=== PATIENT | male | born 1935 | race Caucasian/White ===

== ENCOUNTER 2019-09-08 04:41 | Inpatient (IN) | payer MEDICARE, BC ==
[2019-09-08] MEDS ORDERED: NALOXONE 0.4 MG/ML 1 ML VIAL IV PRN (04:56)
[2019-09-08] MEDS ORDERED: ACETAMINOPHEN TAB 325 MG TAB PO PRN (04:56)
[2019-09-08] MEDS ORDERED: MORPHINE SULFATE 4 MG/ML SYRINGE IV PRN (04:56)
--- NOTE | 2019-09-08 04:56 | ED ---
General Adult HPI - General Stated complaint: GI Bleed Time Seen by Provider: 09/08/19 04:42 Source: patient, family, EMS Mode of arrival: EMS Limitations: no limitations - History of Present Illness Initial comments: Dictation was produced using [employer] dictation software. please excuse any grammatical, word or spelling errors. Chief Complaint: 84-year-old male past medical history of coronary artery disease, dyslipidemia hypertension presents via transfer from [facility] for colitis. History of Present Illness: 84-year-old female he initially presented to [facility]. One hour prior to arriving at [facility] he had 1 hours symptoms of lower abdominal pain. Patient states he had severe abdominal pain and became diaphoretic. He was initially evaluated there where he Extensive workup. His CT was positive for colitis. His x-ray was suggestive of ileus. Patient was given antibiotics for concern of infectious colitis. Patient was also having been found to have elevated white blood cell count. He is given antibiotics and transferred to our facility for escalation of care. Patient is also found have mild hypokalemia is given parenteral potassium. CT was less likely to represent ischemic bowel. Patient was seen and evaluated by Dr. loya at [facility]. Dr. loya felt patient needed to be tra nsferred to our facility for need of surgery versus GI. He states he feels much better since being transferred. States that he wants to use the restroom. The ROS documented in this emergency department record has been reviewed and confirmed by me. Those systems with pertinent positive or negative responses have been documented in the HPI. All other systems are other negative and/or noncontributory. PHYSICAL EXAM: General Impression: Alert and oriented x3, not in acute distress HEENT: Normocephalic atraumatic, extra-ocular movements intact, pupils equal and reactive to light bilaterally, mucous membranes moist. Cardiovascular: Heart regular rate and rhythm, S1&S2 audible, no murmurs, rubs or gallops Chest: Lungs clear to auscultation bilaterally, no rhonchi, no wheeze, no rales Abdomen: Bowel sounds present, abdomen soft, mild diffuse abdominal tenderness Musculoskeletal: Pulses present and equal in all extremities, no peripheral edema Motor: no focal deficits noted Neurological: CN II-XII grossly intact, no focal motor or sensory deficits noted Skin: Intact with no visualized rashes Psych: Normal affect and mood ED course: 84-year-old male transferred from [facility] for acute infectious colitis, hypokalemia. Dr. Loya from [facility] transfer patient for possible need of evaluation by general surgery and gastroenterology. Transferred from dictation was reviewed. Vital signs upon arrival are within acceptable limits. Patient currently well-appearing. Repeat EKG shows no acute processes. Pending discussion with Dr. Frausto for admission. GI will be consulted. EKG interpretation: Ventricular rate 92, sinus rhythm, HI interval 146, QS 116, QTc 507. EKG compared to 10/20/2014. There is findings consistent with prolonged QT. Sightly secondary to hypokalemia. Multiple pages have been made to contact Dr. Frausto for admission. He has not called back yet. Patient to be admitted. - Related Data Home Medications Medication Instructions Recorded Confirmed Aspirin 325 mg PO DAILY 10/20/14 10/20/14 Atorvastatin [Lipitor] 80 mg PO HS 10/20/14 10/20/14 Glucosamine Sulfate 500 mg PO DAILY 10/20/14 10/20/14 Latanoprost Ophth [Xalatan 0.005%] 1 drops BOTH EYES HS 10/20/14 10/20/14 Multivitamin [Men's Multi-Vitamin] 1 each PO DAILY 10/20/14 10/20/14 Omeprazole [PriLOSEC] 20 mg PO AC-BID 10/20/14 10/20/14 Previous Rx's Medication Instructions Recorded Cefuroxime Axetil [Ceftin] 500 mg PO BID #10 tablet 10/23/14 HYDROcodone/APAP 5-325MG [Adolphus 1 each PO Q4HR PRN #30 tab 10/23/14 5-325] Lisinopril [Zestril] 5 mg PO DAILY #1 tab 10/23/14 Metoprolol Tartrate [Lopressor] 12.5 mg PO BID #1 tab 10/23/14 Allergies Allergy/AdvReac Type Severity Reaction Status Date / Time No Known Allergies Allergy Verified 09/08/19 04:49 Review of Systems ROS Statement: Those systems with pertinent positive or pertinent negative responses have been documented in the HPI. ROS Other: All systems not noted in ROS Statement are negative. Past Medical History Past Medical History: Coronary Artery Disease (CAD), Diabetes Mellitus, GERD/Reflux, Hyperlipidemia, Hypertension Additional Past Medical History / Comment(s): glaucoma History of Any Multi-Drug Resistant Organisms: None Reported Past Surgical History: Appendectomy, Heart Catheterization With Stent Additional Past Surgical History / Comment(s): Left knee 10-16-[address] Seo at [facility]. Past Anesthesia/Blood Transfusion Reactions: No Reported Reaction Date of Last Stent Placement:: Past Psychological History: No Psychological Hx Reported Smoking Status: Former smoker Past Alcohol Use History: Occasional Past Drug Use History: None Reported General Exam Limitations: no limitations Course Vital Signs 09/08/19 04:43 Temperature 99 F Pulse Rate 84 Respiratory 20 Rate Blood Pressure 138/70 O2 Sat by Pulse 97 Oximetry Disposition Clinical Impression: Colitis Disposition: ADMITTED IP TO THIS HOSP Condition: Fair Decision Time: 05:37
[2019-09-08] MEDS ORDERED: METOCLOPRAMIDE 5 MG/ML 2 ML VIAL IVP STA (05:07)
[2019-09-08] MEDS: SODIUM CHLORIDE 0.9% 1,000 ML IV SCH ×3 (05:07→22:50)
[2019-09-08 05:58] VITALS: BMI 28.0
[2019-09-08] MEDS: PANTOPRAZOLE 40 MG/10 ML VIAL IV SCH (09:25)
--- NOTE | 2019-09-08 10:15 | P.HPIM ---
History of Present Illness H&P Date: 09/08/19 Toro Vallejo is an 84-year-old male who was at home when he started having lower abdominal pain and diaphoresis his called EMS and patient was taken to [facility], he was evaluated there, his laboratory data was significant for leukocytosis, severe hypokalemia, and slight elevation in amylase with normal lipase, computed tomography scan of the abdomen and pelvis revealed inflammatory changes involving the ascending and transverse colon, computed tomography scan also revealed evidence of 2 lesions in the left kidney and a 0.4 cm nonobstructing stone in the left kidney, he was started on antibiotic and was admitted under Dr. Loya service at [facility], he was evaluated by Dr. Loya and was transferred to our hospital for further evaluation by gastroenterology or surgery. Patient denies any previous history of colitis or Crohn's disease, he has known history of coronary artery disease and had previous history of stent placement he also has known history of hypertension, hyperlipidemia, diabetes mellitus, and glaucoma his past surgical history is significant for appendicectomy and left knee total arthroplasty. On review of systems patient is alert and oriented 3 he is still complaining of lower abdominal pain and complaining of blood in his stools otherwise no complaints at this time there is no fever or chills no headache or dizziness no chest pain no shortness of breath no cough no nausea or vomiting burning was urination no frequency or urgency and no hematuria Past Medical History Past Medical History: Coronary Artery Disease (CAD), Diabetes Mellitus, GERD/Reflux, Hyperlipidemia, Hypertension Additional Past Medical History / Comment(s): glaucoma History of Any Multi-Drug Resistant Organisms: None Reported Past Surgical History: Appendectomy, Heart Catheterization With Stent Additional Past Surgical History / Comment(s): Left knee 10-16-[address] Seo at [facility]. Past Anesthesia/Blood Transfusion Reactions: No Reported Reaction Date of Last Stent Placement:: Past Psychological History: No Psychological Hx Reported Smoking Status: Former smoker Past Alcohol Use History: Occasional Past Drug Use History: None Reported Medications and Allergies Home Medications Medication Instructions Recorded Confirmed Type Aspirin 325 mg PO DAILY 10/20/14 09/08/19 History Atorvastatin [Lipitor] 80 mg PO HS 10/20/14 09/08/19 History Glucosamine Sulfate 500 mg PO DAILY 10/20/14 09/08/19 History Latanoprost Ophth [Xalatan 0.005%] 1 drops LEFT EYE HS 10/20/14 09/08/19 History Omeprazole [PriLOSEC] 20 mg PO AC-BID 10/20/14 09/08/19 History Dorzolamide/Timolol/Pf 1 drop LEFT EYE BID 09/08/19 09/08/19 History [Dorzolamide 2%-Timolol 0.5%] Fluticasone Nasal [place] [Flonase 2 spray EA NOSTRIL HS 09/08/19 09/08/19 History Nasal [place]] L.acidoph,Paracasei, B.lactis 1 cap PO DAILY 09/08/19 09/08/19 History [Probiotic] Meloxicam [Mobic] 15 mg PO HS 09/08/19 09/08/19 History Triamterene-Hctz 37.5-25Mg 1 cap PO DAILY 09/08/19 09/08/19 History [Dyazide 37.5-25 Capsule] Vit A/Vit C/Vit E/Zinc/Copper 1 cap PO DAILY 09/08/19 09/08/19 History [ICAPS SOFTGEL] amLODIPine [Norvasc] 10 mg PO DAILY 09/08/19 09/08/19 History Allergies Allergy/AdvReac Type Severity Reaction Status Date / Time No Known Allergies Allergy Verified 09/08/19 08:31 Physical Exam Vitals: Vital Signs Temp Pulse Pulse Resp BP BP Pulse Ox 09/08/19 07:00 98.8 F 92 20 144/75 98 09/08/19 06:01 98.4 F 102 H 16 152/78 95 09/08/19 04:43 99 F 84 20 138/70 97 Intake and Output 09/07/19 09/08/19 09/08/19 22:59 06:59 14:59 Other: Voiding Method Urinal Weight 81.193 kg In general patient is alert and oriented 3 in no apparent distress HEENT head normocephalic and atraumatic Neck is supple no JVD no goiter no lymphadenopathy Chest exam reveals a few scattered rhonchi no wheezing Cardiac exam reveals regular heart sounds S1 and S2 no gallops no murmurs Abdomen is soft, with mild diffuse tenderness, no organomegaly with normal bowel sounds Extremity exam reveals mild edema no cyanosis or clubbing Neurological examination reveals no gross focal deficit Thrombosis Risk Factor Assmnt - Choose All That Apply Each Risk Factor Represents 3 Points: Age 75 years or older Thrombosis Risk Factor Assessment Total Risk Factor Score: 3 Thrombosis Risk Factor Assessment Level: Moderate Risk Assessment and Plan Plan: Acute colitis, cause is unclear, inflammatory versus infectious, computed tomography scan report states that ischemic colitis is less likely, will resume IV antibiotic, will consult gastroenterology, monitor white blood count #2 leukocytosis likely related to colitis Will monitor #3 underlying history of coronary artery disease with previous history of angioplasty and stent placement last time in 2012 #4 hypokalemia Corps corrected that [facility] will recheck labs #5 underlying history of hypertension maintained on lisinopril 5 mg daily and metoprolol 12.5 mg twice a day #6 underlying history of hyperlipidemia #7 underlying history of gastroesophageal reflux disease #8 underlying history of osteoarthritis At this time will recheck labs, home medications were ordered, will start antibiotic Levaquin and Flagyl Gastroenterology consultation requested
[2019-09-08 10:45] LABS: Basophils % (A) 0 %; Eosinophils % (A) 0 %; HCT 41.4 % (39.0-53.0); HGB 14.5 gm/dL (13.0-17.5); Lymphocytes # (A) 1.9 k/uL (1.0-4.8); Lymphocytes % (A) 9 %; MCH 33.3 pg (25.0-35.0); MCHC 35.1 g/dL (31.0-37.0); MCV 94.9 fL (80.0-100.0); Mean Platelet Volume 6.1; Monocytes # (A) 0.4 k/uL (0-1.0); Monocytes % (A) 2 %; Neutrophils # (A) 18.8 k/uL (1.3-7.7); Neutrophils % (A) 88 %; Platelet Count 179 k/uL (150-450); RBC 4.36 m/uL (4.30-5.90); RDW 13.1 % (11.5-15.5); WBC 21.3 k/uL (3.8-10.6)
[2019-09-08 10:53] LABS: ALT 21 U/L (21-72); AST 27 U/L (17-59); African American GFR (CKD) >90 (>60 ml/min/1.73 sqM); Albumin 4.2 g/dL (3.5-5.0); Alkaline Phosphatase 54 U/L (38-126); Anion Gap 15 mmol/L; Blood Urea Nitrogen 21 mg/dL (9-20); Calcium 9.2 mg/dL (8.4-10.2); Carbon Dioxide 26 mmol/L (22-30); Chloride 99 mmol/L (98-107); Glucose 169 mg/dL (74-99); Sodium 140 mmol/L (137-145); Total Bilirubin 1.7 mg/dL (0.2-1.3); Total Protein 7.1 g/dL (6.3-8.2)
[2019-09-08] MEDS: LISINOPRIL 5 MG TAB PO SCH (10:56)
[2019-09-08] MEDS: metroNIDAZOLE-NS PMX 500 MG in SALINE 1 100ML.BAG IVPB SCH ×3 (10:56→23:09)
[2019-09-08] MEDS: METOPROLOL SUCCINATE (ER) 25 MG TAB.ER.24H PO SCH ×2 (10:56→20:40)
--- NOTE | 2019-09-08 12:03 | CONS ---
CONSULTATION DATE OF DICTATION: 09/08/2019 PHYSICIAN REQUESTING: . REASON FOR CONSULTATION: Acute onset of severe lower abdominal pain and rectal bleeding. The patient is an 84 - year-old pleasant white male who presents to the emergency room at [facility] last night complaining of severe lower abdominal pain that started yesterday evening. The pain continued to progressively get worse. He had a sensation to defecate, but had no bowel movement. In the meantime, he became extremely diaphoretic and hypertensive and he went to the emergency room at [facility]. Labs at [facility] showed a white count of 16,000 with a hemoglobin of 14.9. He had a CT of the abdomen and pelvis done that showed diffuse thickening of the wall of the transverse colon extending into the descending colon and the proximal mid sigmoid colon suspicious for ischemic colitis versus infectious colitis. Also, there was a 1.4 cm hyperdense lesion in the midpole of the right kidney noted. Because of the concern for ischemic colitis, the patient was transferred to [facility] for further evaluation. This morning, he is doing much better. He still has some pain in the left lower quadrant area. He had about 3 or 4 bloody bowel movements since midnight. The last one was about 1 hour ago. He reports some nausea but no emesis. No fever, chills, night sweats. Never had these symptoms in the past. Last colonoscopy was approximately 5 or 6 years ago and according to the patient it was within normal limits. He never had these symptoms in the past. PAST MEDICAL HISTORY: Significant for hypertension, hyperlipidemia, gastroesophageal reflux disease. MEDICATIONS: At home, aspirin, Lipitor, Glucosamine, multivitamins and Prilosec. ALLERGIES: None. PAST SURGICAL HISTORY: Cardiac catheterization with stent placement, appendectomy, left knee replacement. SOCIAL HISTORY: No smoking. No alcohol use. FAMILY HISTORY: Unremarkable. ALLERGIES: None. REVIEW OF SYSTEMS: CARDIOPULMONARY: No chest pain, no shortness of breath. GENITOURINARY: No dysuria or hematuria. MUSCULOSKELETAL: Unremarkable. SKIN: Unremarkable. ENDOCRINE: Unremarkable. PSYCHIATRIC unremarkable. NEUROLOGY unremarkable. ENT/vision unremarkable. CONSTITUTIONAL: No recent weight loss. No fever, chills or night sweats. GASTROINTESTINAL: As mentioned earlier. ENDOCRINE: Unremarkable. HEMATOLOGY: Unremarkable. PHYSICAL EXAMINATION: He appears comfortable, in no apparent distress. Vital signs stable. Blood pressure is 144/75, pulse 92, temperature 98.8. HEENT: Examination unremarkable. Conjunctivae pink. Sclerae anicteric. Oral cavity no lesions. NECK: No JVD or lymph node enlargement. CHEST: Clear to auscultation. HEART: Regular rate and rhythm. ABDOMEN: Soft. Bowel sounds are positive. There was tenderness in the left lower quadrant area and mild tenderness in the right lower quadrant area. ABDOMEN is otherwise benign. There was no rebound or rigidity. EXTREMITIES: No pedal edema. SKIN no rashes. NEUROLOGIC: Alert and oriented x3. No focal deficits. LABS: Done at [facility] last night showed a WBC of 16.09, hemoglobin was 14.9, platelets 222. INR 1.2. ALT, AST, T-bilirubin, alkaline phosphatase are normal. BUN is 25, creatinine 0.9. IMPRESSION: The patient presents to the hospital with acute onset of severe lower abdominal pain followed by rectal bleeding that started last night. He never had these symptoms in the past. CT of the abdomen and pelvis done in the emergency room showed thickening of the sigmoid colon, descending colon up to the proximal transverse colon, all of which consistent with acute severe ischemic colitis, but possibility of infectious etiology could not be excluded. The clinical presentation is very consistent with acute ischemic colitis. Last colonoscopy was more than 5 years ago and according to the patient was within normal limits. RECOMMENDATIONS: 1. Clear liquid diet. 2. We will start him on broad-spectrum antibiotics. 3. Repeat CBC today. 4. I had a lengthy discussion with the patient as well as his who was at the bedside regarding the management of possible acute ischemic colitis, which would be conservative approach for now. 5. We will follow with him closely during his hospital stay. 6. No plans on any endoscopic intervention at the present time. Thank you for this consultation. MMODL / IJN: [id number] /
[2019-09-08] MEDS: LEVOFLOXACIN 500MG-D5W PMX 500 MG in DEXTROSE/WATER 1 100ML.BAG IVPB SCH (13:39)
[2019-09-08 18:10] LABS: Hemoglobin A1C 5.5 % (4.0-6.0)
[2019-09-08] MEDS: DORZOLAMIDE-TIMOLOL 2.23%/0.68 10ML BTL LEFT EYE SCH (20:45)
[2019-09-08] MEDS: LATANOPROST 0.005% OPHTH DROPS 2.5 ML BTL LEFT EYE SCH (20:45)
[2019-09-08 23:23] LABS: Basophils % (A) 0 %; Eosinophils % (A) 0 %; HCT 37.7 % (39.0-53.0); HGB 13.3 gm/dL (13.0-17.5); Lymphocytes % (A) 11 %; MCH 33.4 pg (25.0-35.0); MCHC 35.4 g/dL (31.0-37.0); MCV 94.5 fL (80.0-100.0); Mean Platelet Volume 6.1; Monocytes # (A) 0.7 k/uL (0-1.0); Monocytes % (A) 4 %; Neutrophils # (A) 16.1 k/uL (1.3-7.7); Neutrophils % (A) 84 %; Platelet Count 224 k/uL (150-450); RBC 3.99 m/uL (4.30-5.90); RDW 13.2 % (11.5-15.5); WBC 19.1 k/uL (3.8-10.6)
[2019-09-09 01:06] LABS: Glucose,Whole Blood 127 mg/dL (75-99)
[2019-09-09 05:04] LABS: Basophils % (A) 0 %; Eosinophils % (A) 0 %; HCT 37.5 % (39.0-53.0); HGB 12.6 gm/dL (13.0-17.5); Lymphocytes # (A) 1.9 k/uL (1.0-4.8); Lymphocytes % (A) 11 %; MCHC 33.6 g/dL (31.0-37.0); MCV 95.4 fL (80.0-100.0); Monocytes # (A) 0.6 k/uL (0-1.0); Monocytes % (A) 3 %; Neutrophils # (A) 14.9 k/uL (1.3-7.7); Neutrophils % (A) 84 %; Platelet Count 201 k/uL (150-450); RBC 3.93 m/uL (4.30-5.90); RDW 13.4 % (11.5-15.5); WBC 17.6 k/uL (3.8-10.6)
[2019-09-09 05:12] LABS: African American GFR (CKD) >90 (>60 ml/min/1.73 sqM); Anion Gap 10 mmol/L; Blood Urea Nitrogen 20 mg/dL (9-20); Calcium 8.4 mg/dL (8.4-10.2); Carbon Dioxide 27 mmol/L (22-30); Chloride 100 mmol/L (98-107); Glucose 113 mg/dL (74-99); Sodium 137 mmol/L (137-145)
[2019-09-09 05:13] LABS: Potassium 2.7 mmol/L (3.5-5.1)
[2019-09-09] MEDS ORDERED: Potassium Replacement Protocol 1 EACH MISC MISCELLANE PRN (05:14)
[2019-09-09] MEDS: POTASSIUM CHLORIDE 10 MEQ in WATER FOR INJECTION 1 100ML.BAG IVPB SCH ×6 (05:25→11:59)
[2019-09-09] MEDS: metroNIDAZOLE-NS PMX 500 MG in SALINE 1 100ML.BAG IVPB SCH ×2 (08:38→15:32)
[2019-09-09] MEDS: SODIUM CHLORIDE 0.9% 1,000 ML IV SCH ×2 (08:38→16:44)
[2019-09-09] MEDS: DORZOLAMIDE-TIMOLOL 2.23%/0.68 10ML BTL LEFT EYE SCH ×2 (08:40→19:58)
[2019-09-09] MEDS: LISINOPRIL 5 MG TAB PO SCH (08:41)
[2019-09-09] MEDS: PANTOPRAZOLE 40 MG/10 ML VIAL IV SCH (08:41)
[2019-09-09] MEDS: METOPROLOL SUCCINATE (ER) 25 MG TAB.ER.24H PO SCH ×2 (08:41→20:08)
--- NOTE | 2019-09-09 09:59 | CONS ---
CONSULTATION DATE OF CONSULTATION: September 09, 2019 Very pleasant 84-year-old male who sees Dr. Granados up in [place]. He apparently initially went to the emergency room at [facility]. He went there for GI bleeding. The patient has a history of CAD, hyperlipidemia, hypertension, and was transferred down from [place] because of colitis and GI bleed. He was admitted to the floor. He complained initially when he came to the emergency room here of abdominal pain and bleeding from the rectum. The patient apparently was thought to have colitis based on a CT scan at that hospital. His x-ray suggested ileus. He had a colonoscopy 10 years ago. Apparently it was normal. Again, his primary care physician is Dr. Granados. Anyway, last night, apparently, he had a couple of bright red bowel movements. For that reason, he was transferred to the ICU. Currently, the patient has not received any blood. He is on 2 L nasal cannula. His abdominal pain is much less significant now. He is getting an IV of saline at 100 mL an hour. GI has been consulted. He has never had this problem before he tells me. HOME MEDICATIONS: Include aspirin, Lipitor, glucosamine sulfate, eye drops, multivitamins, Prilosec, Yoder, lisinopril, and metoprolol. ALLERGIES: Denied. MEDICAL HISTORY: CAD, diabetes mellitus, acid reflux disease, hyperlipidemia, and hypertension. Medical history also includes glaucoma. He has no previous history of GI issues. SURGICAL HISTORY: Includes appendectomy, and heart catheterization with stent. He has had a left knee surgery by Dr. Seo in 2014. SOCIAL HISTORY: Positive for previous tobacco use. He drinks alcohol occasionally. No illicit drug use. FAMILY HISTORY: Noncontributory. Both mother and father were very healthy. REVIEW OF SYSTEMS: CONSTITUTIONAL negative. HEENT negative. CARDIOVASCULAR negative. PULMONARY negative. GI abdominal pain and GI bleed. negative. RHEUMATOLOGIC negative. IMMUNOLOGIC negative. ENDOCRINOLOGIC negative. DERMATOLOGIC negative. PHYSICAL EXAMINATION: VITAL SIGNS: Current vital signs: Temperature 97.8, heart rate 69, respiratory rate 16, blood pressure 114/65, mean 81, and 2 L saturation is 93-96 percent. GENERAL: Appears in no acute distress. He is lying flat in bed. No respiratory difficulty. HEENT examination is grossly unremarkable. Nasal O2 in place. Mucous membranes are moist. NECK: Supple. Full range of motion. No adenopathy or thyromegaly. Neck veins are flat. CARDIOVASCULAR examination reveals regular rhythm and rate. Heart rate 70 beats per minute. S1, S2 normal. No S3, S4, or murmur. LUNGS: Reveal clear breath sounds equal. No wheezes or rhonchi. No crackles. ABDOMEN is mildly distended. It is soft. Bowel sounds are noted. There is no tenderness on palpation. EXTREMITIES are intact. No cyanosis, clubbing, or edema. SKIN: Without rash. NEUROLOGIC: Examination is brief but nonfocal. LABS: Reviewed. White count 17.6, hemoglobin 12.6, hematocrit 37.5, platelet count 301,000. Sodium 137, potassium 2.7, which is being replaced, chloride 100, CO2 27, anion gap is 10, BUN and creatinine were 20 and 0.86. The rest of the comprehensive metabolic profile looks pretty good. Bilirubin was a bit elevated at 1.7. C. difficile studies were negative. EKG does show sinus rhythm with premature atrial beats. The scanning from the other hospital is currently not available. Medications are reviewed. He is currently on Tylenol, eye drops, Levaquin, Zestril, metoprolol, Flagyl, morphine sulfate, Narcan, Protonix, potassium replacement, and saline IV. ASSESSMENT: 1. Acute gastrointestinal bleed, thought to be related to possible infectious colitis. 2. History of hyperlipidemia. 3. Gastroesophageal reflux disease. 4. History of hypertension. 5. Diabetes mellitus. 6. Coronary artery disease. 7. History of glaucoma. 8. Previous history of heart catheterization with stent. PLAN: Currently the patient is on appropriate medications including antibiotics. He has been seen by the primary service and also Dr. Holguin in Gastroenterology. We will continue to follow closely. Prognosis is guarded. He was moved to the ICU last night because of acute GI bleed. Currently, he is not bleeding. We will continue to watch him very carefully here in the ICU. MMODL / IJN: [id number] /
[2019-09-09] MEDS: LEVOFLOXACIN 500MG-D5W PMX 500 MG in DEXTROSE/WATER 1 100ML.BAG IVPB SCH (11:59)
--- NOTE | 2019-09-09 12:39 | P.PN ---
Subjective Progress Note Date: 09/09/19 Toro Vallejo is an 84-year-old male who was at home when he started having lower abdominal pain and diaphoresis his called EMS and patient was taken to [facility], he was evaluated there, his laboratory data was significant for leukocytosis, severe hypokalemia, and slight elevation in amyl ase with normal lipase, computed tomography scan of the abdomen and pelvis revealed inflammatory changes involving the ascending and transverse colon, computed tomography scan also revealed evidence of 2 lesions in the left kidney and a 0.4 cm nonobstructing stone in the left kidney, he was started on antibiotic and was admitted under Dr. Loya service at [facility], he was evaluated by Dr. Loya and was transferred to our hospital for further evaluation by gastroenterology or surgery. Patient denies any previous history of colitis or Crohn's disease, he has known history of coronary artery disease and had previous history of stent placement he also has known history of hypertension, hyperlipidemia, diabetes mellitus, and glaucoma his past surgical history is significant for appendicectomy and left knee total arthroplasty. On review of systems patient is alert and oriented 3 he is still complaining of lower abdominal pain and complaining of blood in his stools otherwise no c omplaints at this time there is no fever or chills no headache or dizziness no chest pain no shortness of breath no cough no nausea or vomiting burning was urination no frequency or urgency and no hematuria On 09/09/2019 patient is alert and oriented 3. Patient transferred to the intensive care unit due to acute GI bleed. She has had 2 bowel movements in the past 12 hours. Slight blood noted in nursing staff and patient. Hemoglobin remained stable at 12.6. Patient reports significant improvement with abdominal pain and nausea. Patient remains on IV antibiotics. Blood cell is trending down to 7.6. Potassium low at 2.7 replacement protocol. GI services following GI and critical care service is following Objective - Vital Signs Vital signs: Vital Signs Temp 98.1 F 09/09/19 08:00 Pulse 63 09/09/19 11:00 Resp 15 09/09/19 11:00 BP 133/69 09/09/19 11:00 Pulse Ox 91 L 09/09/19 11:00 Intake & Output 09/08/19 09/09/19 09/09/19 18:59 06:59 18:59 Intake Total 800 1300 Output Total 400 550 0 Balance -794 191 9972 Intake: IV 650 940 Potassium Chloride 10 meq 100 400 In Water For Injection 1 100ml.bag @ 100 mls/hr IVPB Q1HR [facility] Rx#: [id number] Sodium Chloride 0.9% 1, 550 440 000 ml @ 110 mls/hr IV . Q9H6M [facility] Rx#:[id number] metroNIDAZOLE-NS PMX 500 100 mg In Saline 1 100ml.bag @ 100 mls/hr IVPB Q8HR [facility] Rx#:[id number] Oral 150 360 Output: Urine 400 250 0 Stool 300 Other: Voiding Method Toilet Urinal Urinal Urinal # Bowel Movements 1 1 - Exam In general patient is alert and oriented 3 in no apparent distress HEENT head normocephalic and atraumatic Neck is supple no JVD no goiter no lymphadenopathy Chest exam reveals a few scattered rhonchi no wheezing Cardiac exam reveals regular heart sounds S1 and S2 no gallops no murmurs Abdomen is soft, with mild diffuse tenderness, no organomegaly with normal bowel sounds Extremity exam reveals mild edema no cyanosis or clubbing Neurological examination reveals no gross focal deficit - Labs CBC & Chem 7: 09/09/19 04:26 09/09/19 04:26 Labs: Abnormal Lab Results - Last 24 Hours (Table) 09/08/19 09/09/19 09/09/19 Range/Units 22:57 00:53 04:26 WBC 19.1 H 17.6 H (3.8-10.6) k/uL RBC 3.99 L 3.93 L (4.30-5.90) m/uL Hgb 12.6 L (13.0-17.5) gm/dL Hct 37.7 L 37.5 L (39.0-53.0) % Neutrophils # 16.1 H 14.9 H (1.3-7.7) k/uL Potassium (3.5-5.1) mmol/L Glucose (74-99) mg/dL POC Glucose (mg/dL) 127 H (75-99) mg/dL 09/09/19 Range/Units 04:26 WBC (3.8-10.6) k/uL RBC (4.30-5.90) m/uL Hgb (13.0-17.5) gm/dL Hct (39.0-53.0) % Neutrophils # (1.3-7.7) k/uL Potassium 2.7 L* (3.5-5.1) mmol/L Glucose 113 H (74-99) mg/dL POC Glucose (mg/dL) (75-99) mg/dL Microbiology - Last 24 Hours (Table) 09/08/19 22:30 Stool Culture - Preliminary Stool Assessment and Plan Assessment: #1 Acute colitis, cause is unclear, inflammatory versus infectious, computed tomography scan report states that ischemic colitis is less likely, will resume IV antibiotic, will consult gastroenterology, monitor white blood count. Maintain Flagyl and Levaquin. White blood cell is trending down. GI services is following #2 acute GI bleed likely secondary to infectious colitis. Patient transferred to intensive care unit. Hemoglobin 12.6 will continue to monitor GI services following #3 underlying history of coronary artery disease with previous history of angioplasty and stent placement last time in 2012 #4 hypokalemia [facility] corrected that [facility] will recheck labs. Potassium 2.7 replace per protocol #5 underlying history of hypertension maintained on lisinopril 5 mg daily and metoprolol 12.5 mg twice a day #6 underlying history of hyperlipidemia #7 underlying history of gastroesophageal reflux disease #8 underlying history of osteoarthritis DVT prophylaxis SCDs due to acute GI bleed. GI prophylaxis Protonix I performed an examination of the patient and discussed their management with the Nurse Practitioner. I have reviewed the Nurse Practitioner's notes and agree with the documented findings and plan of care
[2019-09-09 14:12] LABS: HCT 33.6 % (39.0-53.0); HGB 11.7 gm/dL (13.0-17.5); MCH 32.9 pg (25.0-35.0); MCHC 34.7 g/dL (31.0-37.0); MCV 94.8 fL (80.0-100.0); Mean Platelet Volume 6.2; Platelet Count 183 k/uL (150-450); RBC 3.54 m/uL (4.30-5.90); RDW 13.4 % (11.5-15.5); WBC 18.8 k/uL (3.8-10.6)
--- NOTE | 2019-09-09 14:43 | PN ---
PROGRESS NOTE DATE OF SERVICE: 09/09/2019 The patient is an 84-year-old pleasant white male admitted to the hospital with acute onset of severe lower abdominal pain associated with nausea, vomiting, and bloody diarrhea of 2 days duration. He initially went to [facility] and was transferred to [facility]. Initial CAT scan showed thickening of the transverse colon, descending colon and sigmoid colon consistent with acute colitis. The patient was started on broad-spectrum antibiotics yesterday and was started on a clear liquid diet. Last night he had an episode of large bloody bowel movement and because of the concern of GI bleed, he was transferred to the intensive care unit. Since being in the ICU he did not have any further episodes of bleeding. He continues to do well. Abdominal pain has resolved. No further episodes of nausea, vomiting. Tolerating clear liquids well. PHYSICAL EXAMINATION: Blood pressure is 104/54, pulse is 76, temperature 98.8. HEENT examination unremarkable. Conjunctivae pink. Sclerae anicteric. Oral cavity, no lesions. NECK: No JVD or lymph node enlargement. CHEST: Clear to auscultation. HEART: Regular rate and rhythm. ABDOMEN: Soft. Bowel sounds are positive. There was very minimal tenderness in the left lower quadrant area. No rebound or rigidity. EXTREMITIES: No pedal edema. SKIN: No rashes. NEUROLOGIC: Alert and oriented x3. No focal deficits. LABS: Done today, WBC 17.6, hemoglobin 12.6, platelets are normal. Potassium is 2.7. IMPRESSION: Lower abdominal pain/bloody diarrhea of [address] scan showing thickening of the left colon consistent with acute ischemic colitis. Doubt infectious etiology. The patient continues to have bloody bowel movements and had 2 around midnight last night. Hemoglobin dropped to 12.6 g/dL. Stool for C difficile toxin was negative. RECOMMENDATIONS: 1. Continue with empiric antibiotics. 2. CBC every 8 hours. 3. Clear liquid diet. 4. Continue to watch him closely. No plans on any endoscopic intervention at the present time. Thank you for this consultation. MMODL / IJN: [id number] /
[2019-09-09] MEDS: POTASSIUM CHLORIDE ER 20 MEQ TAB.ER PO SCH ×2 (15:32→16:43)
[2019-09-09] MEDS: LATANOPROST 0.005% OPHTH DROPS 2.5 ML BTL LEFT EYE SCH (19:58)
[2019-09-09 22:18] LABS: HCT 37.4 % (39.0-53.0); HGB 12.7 gm/dL (13.0-17.5); MCH 33.1 pg (25.0-35.0); MCHC 33.9 g/dL (31.0-37.0); MCV 97.6 fL (80.0-100.0); Mean Platelet Volume 6.9; Platelet Count 198 k/uL (150-450); RBC 3.84 m/uL (4.30-5.90); RDW 13.5 % (11.5-15.5)
[2019-09-10] MEDS: metroNIDAZOLE-NS PMX 500 MG in SALINE 1 100ML.BAG IVPB SCH ×3 (00:51→15:24)
[2019-09-10] MEDS: SODIUM CHLORIDE 0.9% 1,000 ML IV SCH ×3 (02:30→20:42)
[2019-09-10] MEDS ORDERED: POTASSIUM CHLORIDE ER 20 MEQ TAB.ER PO SCH ×2 (03:00→15:00)
[2019-09-10 04:51] LABS: Basophils % (A) 0 %; Eosinophils % (A) 0 %; HCT 35.4 % (39.0-53.0); HGB 12.3 gm/dL (13.0-17.5); Lymphocytes # (A) 1.4 k/uL (1.0-4.8); Lymphocytes % (A) 7 %; MCH 33.1 pg (25.0-35.0); MCHC 34.8 g/dL (31.0-37.0); MCV 95.4 fL (80.0-100.0); Mean Platelet Volume 6.3; Monocytes # (A) 0.6 k/uL (0-1.0); Monocytes % (A) 3 %; Neutrophils # (A) 16.9 k/uL (1.3-7.7); Neutrophils % (A) 89 %; Platelet Count 174 k/uL (150-450); RBC 3.72 m/uL (4.30-5.90); RDW 13.3 % (11.5-15.5)
[2019-09-10 05:05] LABS: African American GFR (CKD) >90 (>60 ml/min/1.73 sqM); Anion Gap 7 mmol/L; Blood Urea Nitrogen 14 mg/dL (9-20); Calcium 8.1 mg/dL (8.4-10.2); Carbon Dioxide 25 mmol/L (22-30); Chloride 103 mmol/L (98-107); Glucose 126 mg/dL (74-99); Potassium 3.3 mmol/L (3.5-5.1); Sodium 135 mmol/L (137-145)
[2019-09-10] MEDS: POTASSIUM CHLORIDE ER 20 MEQ TAB.ER PO SCH ×2 (07:23→07:57)
[2019-09-10] MEDS: PANTOPRAZOLE 40 MG/10 ML VIAL IV SCH (07:56)
[2019-09-10] MEDS: LISINOPRIL 5 MG TAB PO SCH (07:57)
[2019-09-10] MEDS: METOPROLOL SUCCINATE (ER) 25 MG TAB.ER.24H PO SCH ×2 (07:57→20:40)
[2019-09-10] MEDS: DORZOLAMIDE-TIMOLOL 2.23%/0.68 10ML BTL LEFT EYE SCH ×2 (07:57→20:40)
--- NOTE | 2019-09-10 10:45 | P.PN ---
Subjective Progress Note Date: 09/10/19 Toro Vallejo is an 84-year-old male who was at home when he started having lower abdominal pain and diaphoresis his called EMS and patient was taken to [facility], he was evaluated there, his laboratory data was significant for leukocytosis, severe hypokalemia, and slight elevation in amyl ase with normal lipase, computed tomography scan of the abdomen and pelvis revealed inflammatory changes involving the ascending and transverse colon, computed tomography scan also revealed evidence of 2 lesions in the left kidney and a 0.4 cm nonobstructing stone in the left kidney, he was started on antibiotic and was admitted under Dr. Loya service at [facility], he was evaluated by Dr. Loya and was transferred to our hospital for further evaluation by gastroenterology or surgery. Patient denies any previous history of colitis or Crohn's disease, he has known history of coronary artery disease and had previous history of stent placement he also has known history of hypertension, hyperlipidemia, diabetes mellitus, and glaucoma his past surgical history is significant for appendicectomy and left knee total arthroplasty. On review of systems patient is alert and oriented 3 he is still complaining of lower abdominal pain and complaining of blood in his stools otherwise no c omplaints at this time there is no fever or chills no headache or dizziness no chest pain no shortness of breath no cough no nausea or vomiting burning was urination no frequency or urgency and no hematuria On 09/09/2019 patient is alert and oriented 3. Patient transferred to the intensive care unit due to acute GI bleed. She has had 2 bowel movements in the past 12 hours. Slight blood noted in nursing staff and patient. Hemoglobin remained stable at 12.6. Patient reports significant improvement with abdominal pain and nausea. Patient remains on IV antibiotics. Blood cell is trending down to 7.6. Potassium low at 2.7 replacement protocol. GI services following GI and critical care service is following On 09/10/2019 patient is alert and oriented 3. Per nursing staff patient has had no more episodes of blood in stool. Hemoglobin remained stable at 12.3. Patient remains on IV antibiotics. At this time patient denies chest pain or shortness of breath. Patient denies nausea vomiting or diarrhea. Patient denies urinary burning or frequency. Objective - Vital Signs Vital signs: Vital Signs Temp 98.1 F 09/10/19 08:00 Pulse 67 09/10/19 10:00 Resp 20 09/10/19 10:00 BP 102/52 09/10/19 10:00 Pulse Ox 94 L 09/10/19 10:00 Intake & Output 09/09/19 09/10/19 09/10/19 18:59 06:59 18:59 Intake Total 2980 1530 580 Output Total 101 275 Balance 2879 1255 580 Weight 84 kg Intake: IV 1900 1430 330 Levofloxacin 500Mg-D5w 100 Pmx 500 mg In Dextrose/ Water 1 100ml.bag @ 100 mls/hr IVPB Q24H [facility] Rx#: [id number] Potassium Chloride 10 meq 500 In Water For Injection 1 100ml.bag @ 100 mls/hr IVPB Q1HR [facility] Rx#: [id number] Sodium Chloride 0.9% 1, 1100 1430 330 000 ml @ 110 mls/hr IV . Q9H6M [facility] Rx#:[id number] metroNIDAZOLE-NS PMX 500 200 mg In Saline 1 100ml.bag @ 100 mls/hr IVPB Q8HR [facility] Rx#:[id number] Oral 1080 100 250 Output: Urine 100 275 Stool 1 Other: Voiding Method Urinal Urinal # Voids 1 1 # Bowel Movements 1 - Exam In general patient is alert and oriented 3 in no apparent distress HEENT head normocephalic and atraumatic Neck is supple no JVD no goiter no lymphadenopathy Chest exam reveals a few scattered rhonchi no wheezing Cardiac exam reveals regular heart sounds S1 and S2 no gallops no murmurs Abdomen is soft, with mild diffuse tenderness, no organomegaly with normal bowel sounds Extremity exam reveals mild edema no cyanosis or clubbing Neurological examination reveals no gross focal deficit - Labs CBC & Chem 7: 09/10/19 04:26 09/10/19 04:27 Labs: Abnormal Lab Results - Last 24 Hours (Table) 09/09/19 09/09/19 09/09/19 Range/Units 14:02 14:02 21:58 WBC 18.8 H 20.0 H (3.8-10.6) k/uL RBC 3.54 L 3.84 L (4.30-5.90) m/uL Hgb 11.7 L 12.7 L (13.0-17.5) gm/dL Hct 33.6 L 37.4 L (39.0-53.0) % Neutrophils # (1.3-7.7) k/uL Sodium (137-145) mmol/L Potassium 3.4 L (3.5-5.1) mmol/L Glucose (74-99) mg/dL Calcium (8.4-10.2) mg/dL 09/10/19 09/10/19 Range/Units 04:26 04:27 WBC 19.0 H (3.8-10.6) k/uL RBC 3.72 L (4.30-5.90) m/uL Hgb 12.3 L (13.0-17.5) gm/dL Hct 35.4 L (39.0-53.0) % Neutrophils # 16.9 H (1.3-7.7) k/uL Sodium 135 L (137-145) mmol/L Potassium 3.3 L (3.5-5.1) mmol/L Glucose 126 H (74-99) mg/dL Calcium 8.1 L (8.4-10.2) mg/dL Microbiology - Last 24 Hours (Table) 09/08/19 22:30 Stool Culture - Preliminary Stool Assessment and Plan Assessment: #1 Acute colitis, cause is unclear, inflammatory versus infectious, computed tomography scan report states that ischemic colitis is less likely, will resume IV antibiotic, will consult gastroenterology, monitor white blood count. Maintain Flagyl and Levaquin. White blood cell is trending down. GI services is following #2 acute GI bleed likely secondary to infectious colitis. Patient transferred to intensive care unit. Hemoglobin 12.6 will continue to monitor GI services following #3 underlying history of coronary artery disease with previous history of angioplasty and stent placement last time in 2012 #4 hypokalemia [facility] corrected that [facility] will recheck labs. Potassium 2.7 replace per protocol #5 underlying history of hypertension maintained on lisinopril 5 mg daily and metoprolol 12.5 mg twice a day #6 underlying history of hyperlipidemia #7 underlying history of gastroesophageal reflux disease #8 underlying history of osteoarthritis DVT prophylaxis SCDs due to acute GI bleed. GI prophylaxis Protonix I performed an examination of the patient and discussed their management with the Nurse Practitioner. I have reviewed the Nurse Practitioner's notes and agree with the documented findings and plan of care
[2019-09-10 11:49] LABS: HCT 36.1 % (39.0-53.0); HGB 12.1 gm/dL (13.0-17.5); MCH 32.6 pg (25.0-35.0); MCHC 33.4 g/dL (31.0-37.0); MCV 97.5 fL (80.0-100.0); Mean Platelet Volume 7.4; Platelet Count 196 k/uL (150-450); RDW 13.3 % (11.5-15.5); WBC 19.7 k/uL (3.8-10.6)
[2019-09-10] MEDS: LEVOFLOXACIN 500MG-D5W PMX 500 MG in DEXTROSE/WATER 1 100ML.BAG IVPB SCH (12:00)
[2019-09-10] MEDS ORDERED: ONDANSETRON 4 MG/2 ML VIAL IVP PRN (12:10)
--- NOTE | 2019-09-10 12:51 | PN ---
PROGRESS NOTE DATE OF SERVICE: 09/10/2019 REQUESTING PHYSICIAN: Dr. Frausto Patient is an 84-year-old pleasant white male admitted to the hospital with acute onset of severe lower abdominal pain associated with bloody diarrhea of 2 days' duration. CAT scan showed thickening of the left colon suggestive of acute infectious or ischemic colitis. The patient was transferred to the intensive care unit because of ongoing bloody diarrhea but he did not have any further bleeding today. He had one soft loose bowel movements this morning which was brown in color. Abdominal pain is improving. No nausea, vomiting. On a clear liquid diet tolerating well. PHYSICAL EXAMINATION: Appears comfortable, in no apparent distress. Vital signs are stable, blood pressure 102/52, pulse is 67, temperature 98. HEENT: Examination unremarkable, conjunctivae are pink, sclerae nonicteric, oral cavity no lesions. NECK: No JVD or lymph node enlargement. CHEST: Clear to auscultation. HEART: Regular rate and rhythm. ABDOMEN: Soft. There was mild tenderness in the left lower quadrant area. EXTREMITIES: No pedal edema. SKIN: No rashes. NEURO: Alert and oriented x3, no focal deficits. LABS DONE TODAY: WBC 10.7, hemoglobin 12.1, platelets 196. IMPRESSION: 1. Acute onset of lower abdominal pain with bloody diarrhea of 2-3 days' duration. Patient clinically improving. Bleeding has subsided. Most likely dealing with infectious colitis on broad-spectrum antibiotics, doing well. Stool studies so far have been negative. Hemoglobin stable at 12.1 g/dL. 2. Persistent leukocytosis. RECOMMENDATIONS: 1. Advance to a full liquid diet. 2. Continue with broad-spectrum antibiotics. 3. Monitor CBC on a close basis. Thank you for this consultation. Will follow with you closely during his hospital stay. MMODL / IJN: [id number] /
--- NOTE | 2019-09-10 16:04 | P.PN ---
Subjective Progress Note Date: 09/10/19 This is an 80-year-old male patient who got admitted to our hospital as a transfer from [facility] for symptoms of GI bleeding suspected be related to colitis. The patient is known to have coronary artery disease. Is also known to have hypertension and hyperlipidemia. The patient had a CAT scan of the abdomen that was done [facility] that shows thickening of the transverse and descending colon suggestive of diffuse colitis. No free air in the abdomen. The patient had stool for C. diff that was negative. His abdominal pain is subsided. His abdomen is less tender.. Have a bowel movement this morning that was nonbloody. Hemodynamically stable clean no fever. No chills and altered mentation. The patient has been well resuscitated with IV fluids and the patient is currently receiving normal saline today to 1 10 mL an hour. The patient is also covered with Levaquin and Flagyl as broad-spectrum antibiotic coverage. The white cell count is at 19.7. Hemoglobin was 12.1. As of the blood work and electrodes are all within normal limits. Potassium level is at 3.6. This remaining displaced. The stool cultures are still pending for now. Objective - Vital Signs Vital signs: Vital Signs Temp 98 F 09/10/19 12:00 Pulse 65 09/10/19 15:00 Resp 18 09/10/19 15:00 BP 115/64 09/10/19 15:00 Pulse Ox 92 L 09/10/19 15:00 Intake & Output 09/09/19 09/10/19 09/10/19 18:59 06:59 18:59 Intake Total 2980 1530 1590 Output Total 101 275 2 Balance 2879 1255 1588 Weight 84 kg Intake: IV 1900 1430 1090 Levofloxacin 500Mg-D5w 100 100 Pmx 500 mg In Dextrose/ Water 1 100ml.bag @ 100 mls/hr IVPB Q24H [facility] Rx#: [id number] Potassium Chloride 10 meq 500 In Water For Injection 1 100ml.bag @ 100 mls/hr IVPB Q1HR [facility] Rx#: [id number] Sodium Chloride 0.9% 1, 1100 1430 990 000 ml @ 110 mls/hr IV . Q9H6M [facility] Rx#:[id number] metroNIDAZOLE-NS PMX 500 200 mg In Saline 1 100ml.bag @ 100 mls/hr IVPB Q8HR [facility] Rx#:[id number] Oral 1080 100 500 Output: Urine 100 275 Stool 1 2 Other: Voiding Method Urinal Urinal # Voids 1 1 1 # Bowel Movements 1 1 - Exam In general patient is alert and oriented 3 in no apparent distress Head exam was generally normal. There was no scleral icterus or corneal arcus. Mucous membranes were moist. Neck was supple and without jugular venous distension, thyromegaly, or carotid bruits. Carotids were easily palpable bilaterally. There was no adenopathy. Chest exam reveals a few scattered rhonchi no wheezing Cardiac exam reveals regular heart sounds S1 and S2 no gallops no murmurs Abdomen is soft, with mild diffuse tenderness, no organomegaly with normal bowel sounds Extremity exam reveals mild edema no cyanosis or clubbing Neurological examination reveals no gross focal deficit Examination of the skin revealed no evidence of significant rashes, suspicious appearing nevi or other concerning lesions. - Labs CBC & Chem 7: 09/10/19 11:06 09/10/19 11:06 Labs: Abnormal Lab Results - Last 24 Hours (Table) 09/09/19 09/10/19 09/10/19 Range/Units 21:58 04:26 04:27 WBC 20.0 H 19.0 H (3.8-10.6) k/uL RBC 3.84 L 3.72 L (4.30-5.90) m/uL Hgb 12.7 L 12.3 L (13.0-17.5) gm/dL Hct 37.4 L 35.4 L (39.0-53.0) % Neutrophils # 16.9 H (1.3-7.7) k/uL Sodium 135 L (137-145) mmol/L Potassium 3.3 L (3.5-5.1) mmol/L Glucose 126 H (74-99) mg/dL Calcium 8.1 L (8.4-10.2) mg/dL 09/10/19 Range/Units 11:06 WBC 19.7 H (3.8-10.6) k/uL RBC 3.70 L (4.30-5.90) m/uL Hgb 12.1 L (13.0-17.5) gm/dL Hct 36.1 L (39.0-53.0) % Neutrophils # (1.3-7.7) k/uL Sodium (137-145) mmol/L Potassium (3.5-5.1) mmol/L Glucose (74-99) mg/dL Calcium (8.4-10.2) mg/dL Assessment and Plan Plan: 1 diffuse colitis, consider infectious colitis viral versus bacterial. Stool for C. diff has been negative. The patient has not received any recent antibiotics. The patient has no clear signs of ischemic colitis. 2 acute GI bleeding, lower GI source, related to colitis 3 hypertension 4 coronary artery disease 5 diabetes mellitus 6 previous history of coronary artery disease and insertion of a coronary stent 7. Glaucoma 8 hyperlipidemia 9 leukocytosis Plan Continue IV fluids. Continue broad-spectrum antibiotic coverage. Awaiting stool cultures. The patient is doing well. Outpatient medications have been resumed. We'll continue to follow make further recommendations based on the patient's overall progress. The patient has a less tender abdomen on today's evaluation. GI evaluation was done and the patient will be gradually advance to a full liquid diet. Monitor CBC. We'll follow.
[2019-09-10] MEDS: LATANOPROST 0.005% OPHTH DROPS 2.5 ML BTL LEFT EYE SCH (20:40)
[2019-09-11] MEDS: metroNIDAZOLE-NS PMX 500 MG in SALINE 1 100ML.BAG IVPB SCH ×3 (00:24→16:39)
[2019-09-11 04:53] LABS: HCT 33.4 % (39.0-53.0); HGB 11.8 gm/dL (13.0-17.5); MCH 33.5 pg (25.0-35.0); MCHC 35.2 g/dL (31.0-37.0); MCV 95.1 fL (80.0-100.0); Mean Platelet Volume 6.4; Platelet Count 175 k/uL (150-450); RBC 3.52 m/uL (4.30-5.90); RDW 13.1 % (11.5-15.5); WBC 13.1 k/uL (3.8-10.6)
[2019-09-11 04:58] LABS: ALT 19 U/L (21-72); AST 14 U/L (17-59); African American GFR (CKD) >90 (>60 ml/min/1.73 sqM); Albumin 2.4 g/dL (3.5-5.0); Alkaline Phosphatase 30 U/L (38-126); Anion Gap 6 mmol/L; Blood Urea Nitrogen 12 mg/dL (9-20); Calcium 7.9 mg/dL (8.4-10.2); Carbon Dioxide 25 mmol/L (22-30); Chloride 105 mmol/L (98-107); Glucose 113 mg/dL (74-99); Potassium 3.3 mmol/L (3.5-5.1); Sodium 136 mmol/L (137-145); Total Bilirubin 1.2 mg/dL (0.2-1.3); Total Protein 4.8 g/dL (6.3-8.2)
[2019-09-11] MEDS: SODIUM CHLORIDE 0.9% 1,000 ML IV SCH ×2 (05:27→16:43)
[2019-09-11] MEDS: POTASSIUM CHLORIDE ER 20 MEQ TAB.ER PO SCH ×4 (05:27→22:10)
--- NOTE | 2019-09-11 07:20 | P.PN ---
Subjective Progress Note Date: 09/11/19 On today's evaluation of 09/11/2019 the patient is awake and alert. He did have another smaller bowel movement this morning it was loose. No evidence of the GI bleed. Hemoglobin is stable for now. Abdomen is nontender. The white cell count is down to 13.1 and the patient is sitting in combination of Levaquin and Flagyl. Stool cultures still pending for now. The patient's BUN is at 12 with a creatinine of 0.7. Assessment level is at 3.3 and this is being replaced. No nausea. No emesis. He is taking full liquid diet in that that would be gradually advanced. No nausea. No emesis over the past 24 hours. Hemoglobin is stable at 11.8. No other significant events overnight. No fever. No chills. Note that the patient is known to have coronary artery disease and hypertension hyperlipidemia. CAT scan of the abdomen and pelvis was done [facility] showed transverse and descending colon thickening suggestive of colitis. No free air in the abdomen. His abdominal exam is nonfocal. He is still receiving IV fluids at the rate of 110 mL an hour. Objective - Vital Signs Vital signs: Vital Signs Temp 98.4 F 09/11/19 04:00 Pulse 62 09/11/19 07:00 Resp 14 09/11/19 07:00 BP 117/63 09/11/19 07:00 Pulse Ox 97 09/11/19 07:00 Intake & Output 09/10/19 09/11/19 09/11/19 18:59 06:59 18:59 Intake Total 1810 1310 Output Total 2 500 Balance 1808 810 Weight 84.3 kg Intake: IV 1310 1310 Levofloxacin 500Mg-D5w 100 Pmx 500 mg In Dextrose/ Water 1 100ml.bag @ 100 mls/hr IVPB Q24H [facility] Rx#: [id number] Sodium Chloride 0.9% 1, 1210 1210 000 ml @ 110 mls/hr IV . Q9H6M [facility] Rx#:[id number] metroNIDAZOLE-NS PMX 500 100 mg In Saline 1 100ml.bag @ 100 mls/hr IVPB Q8HR [facility] Rx#:[id number] Oral 500 Output: Stool 2 Urine/Stool Mix 500 Other: Voiding Method Urinal Urinal # Voids 1 0 # Bowel Movements 1 0 - Exam In general patient is alert and oriented 3 in no apparent distress Head exam was generally normal. There was no scleral icterus or corneal arcus. Mucous membranes were moist. Neck was supple and without jugular venous distension, thyromegaly, or carotid bruits. Carotids were easily palpable bilaterally. There was no adenopathy. Chest exam reveals a few scattered rhonchi no wheezing Cardiac exam reveals regular heart sounds S1 and S2 no gallops no murmurs Abdomen is soft, with mild diffuse tenderness, no organomegaly with normal bowel sounds Extremity exam reveals mild edema no cyanosis or clubbing Neurological examination reveals no gross focal deficit Examination of the skin revealed no evidence of significant rashes, suspicious appearing nevi or other concerning lesions. - Labs CBC & Chem 7: 09/11/19 04:22 09/11/19 04:22 Labs: Abnormal Lab Results - Last 24 Hours (Table) 09/10/19 09/11/19 09/11/19 Range/Units 11:06 04:22 04:22 WBC 19.7 H 13.1 H (3.8-10.6) k/uL RBC 3.70 L 3.52 L (4.30-5.90) m/uL Hgb 12.1 L 11.8 L (13.0-17.5) gm/dL Hct 36.1 L 33.4 L (39.0-53.0) % Sodium 136 L (137-145) mmol/L Potassium 3.3 L (3.5-5.1) mmol/L Glucose 113 H (74-99) mg/dL Calcium 7.9 L (8.4-10.2) mg/dL AST 14 L (17-59) U/L ALT 19 L (21-72) U/L Alkaline Phosphatase 30 L (38-126) U/L Total Protein 4.8 L (6.3-8.2) g/dL Albumin 2.4 L (3.5-5.0) g/dL Assessment and Plan Plan: 1 diffuse colitis, consider infectious colitis viral versus bacterial. Stool for C. diff has been negative. The patient has not received any recent antibiotics. The patient has no clear signs of ischemic colitis. Clinically the patient is improving. No significant abdominal tenderness. No evidence of any ongoing bleeding. Hemoglobin is stable for now. The patient is covered with accommodation Levaquin and Flagyl. White cell count is improving. 2 acute GI bleeding, lower GI source, related to colitis, currently inactive in stable 3 hypertension 4 coronary artery disease 5 diabetes mellitus 6 previous history of coronary artery disease and insertion of a coronary stent 7. Glaucoma 8 hyperlipidemia 9 leukocytosis, improving Plan Continue IV fluids and kept on IV fluids to 40 mL an hour.. Continue broad- spectrum antibiotic coverage. We'll gradually advance diet to soft and is okay with GI. Abdominal exam is benign. The patient is not showing any signs of bleeding. This was set up on a chair and ambulates. Possible transfer to a medical surgical floor at a later stage.
--- NOTE | 2019-09-11 08:27 | XR ---
EXAMINATION TYPE: XR chest 1V portable DATE OF EXAM: 09/11/2019 COMPARISON: 10/22/2014 HISTORY: Shortness of breath TECHNIQUE: Single frontal view of the chest is obtained. FINDINGS: Right midlung atelectasis is new. Retrocardiac consolidation and opacity at the left costo phrenic angle are also new. Right infrahilar linear atelectasis is seen. Cardiomediastinal silhouette is upper limits of normal. Osseous structures are grossly intact. IMPRESSION: New multifocal airspace disease in the retrocardiac region, near the left costophrenic a ngle and right midlung. Right-sided airspace disease appears as atelectasis. Left could represent pne umonia or atelectasis.
[2019-09-11] MEDS: METOPROLOL SUCCINATE (ER) 25 MG TAB.ER.24H PO SCH ×2 (08:39→20:12)
[2019-09-11] MEDS: PANTOPRAZOLE 40 MG/10 ML VIAL IV SCH (08:39)
[2019-09-11] MEDS: LISINOPRIL 5 MG TAB PO SCH (08:40)
[2019-09-11] MEDS: DORZOLAMIDE-TIMOLOL 2.23%/0.68 10ML BTL LEFT EYE SCH ×2 (08:40→20:13)
--- NOTE | 2019-09-11 09:40 | P.PN ---
Subjective Progress Note Date: 09/11/19 Toro Vallejo is an 84-year-old male who was at home when he started having lower abdominal pain and diaphoresis his called EMS and patient was taken to [facility], he was evaluated there, his laboratory data was significant for leukocytosis, severe hypokalemia, and slight elevation in amyl ase with normal lipase, computed tomography scan of the abdomen and pelvis revealed inflammatory changes involving the ascending and transverse colon, computed tomography scan also revealed evidence of 2 lesions in the left kidney and a 0.4 cm nonobstructing stone in the left kidney, he was started on antibiotic and was admitted under Dr. Loya service at [facility], he was evaluated by Dr. Loya and was transferred to our hospital for further evaluation by gastroenterology or surgery. Patient denies any previous history of colitis or Crohn's disease, he has known history of coronary artery disease and had previous history of stent placement he also has known history of hypertension, hyperlipidemia, diabetes mellitus, and glaucoma his past surgical history is significant for appendicectomy and left knee total arthroplasty. On review of systems patient is alert and oriented 3 he is still complaining of lower abdominal pain and complaining of blood in his stools otherwise no c omplaints at this time there is no fever or chills no headache or dizziness no chest pain no shortness of breath no cough no nausea or vomiting burning was urination no frequency or urgency and no hematuria On 09/09/2019 patient is alert and oriented 3. Patient transferred to the intensive care unit due to acute GI bleed. She has had 2 bowel movements in the past 12 hours. Slight blood noted in nursing staff and patient. Hemoglobin remained stable at 12.6. Patient reports significant improvement with abdominal pain and nausea. Patient remains on IV antibiotics. Blood cell is trending down to 7.6. Potassium low at 2.7 replacement protocol. GI services following GI and critical care service is following On 09/10/2019 patient is alert and oriented 3. Per nursing staff patient has had no more episodes of blood in stool. Hemoglobin remained stable at 12.3. Patient remains on IV antibiotics. At this time patient denies chest pain or shortness of breath. Patient denies nausea vomiting or diarrhea. Patient denies urinary burning or frequency. On 09/11/2019 patient's alert and oriented 3. Patient had normal BM the same without any signs of blood. Diet has been advanced to consistent carb soft diet. Patient had normal breakfast this morning he states that he tolerated well. Patient denies chest pain or shortness of breath. Patient denies nausea vomiting or diarrhea. Patient denies any urinary burning or frequency. White blood cell improving to 13.1. Objective - Vital Signs Vital signs: Vital Signs Temp 98.9 F 09/11/19 08:00 Pulse 70 09/11/19 08:00 Resp 16 09/11/19 08:00 BP 131/61 09/11/19 08:00 Pulse Ox 92 L 09/11/19 08:00 Intake & Output 09/10/19 09/11/19 09/11/19 18:59 06:59 18:59 Intake Total 1810 1310 40 Output Total 2 500 401 Balance 1808 810 -361 Weight 84.3 kg Intake: IV 1310 1310 40 Levofloxacin 500Mg-D5w 100 Pmx 500 mg In Dextrose/ Water 1 100ml.bag @ 100 mls/hr IVPB Q24H [facility] Rx#: [id number] Sodium Chloride 0.9% 1, 1210 1210 40 000 ml @ 40 mls/hr IV . Q24H [facility] Rx#:[id number] metroNIDAZOLE-NS PMX 500 100 mg In Saline 1 100ml.bag @ 100 mls/hr IVPB Q8HR [facility] Rx#:[id number] Oral 500 Output: Urine 400 Stool 2 1 Urine/Stool Mix 500 Other: Voiding Method Urinal Urinal Urinal # Voids 1 0 # Bowel Movements 1 0 1 - Exam In general patient is alert and oriented 3 in no apparent distress HEENT head normocephalic and atraumatic Neck is supple no JVD no goiter no lymphadenopathy Chest exam reveals a few scattered rhonchi no wheezing Cardiac exam reveals regular heart sounds S1 and S2 no gallops no murmurs Abdomen is soft, no tenderness, no organomegaly with normal bowel sounds Extremity exam reveals mild edema no cyanosis or clubbing Neurological examination reveals no gross focal deficit - Labs CBC & Chem 7: 09/11/19 04:22 09/11/19 04:22 Labs: Abnormal Lab Results - Last 24 Hours (Table) 09/10/19 09/11/19 09/11/19 Range/Units 11:06 04:22 04:22 WBC 19.7 H 13.1 H (3.8-10.6) k/uL RBC 3.70 L 3.52 L (4.30-5.90) m/uL Hgb 12.1 L 11.8 L (13.0-17.5) gm/dL Hct 36.1 L 33.4 L (39.0-53.0) % Sodium 136 L (137-145) mmol/L Potassium 3.3 L (3.5-5.1) mmol/L Glucose 113 H (74-99) mg/dL Calcium 7.9 L (8.4-10.2) mg/dL AST 14 L (17-59) U/L ALT 19 L (21-72) U/L Alkaline Phosphatase 30 L (38-126) U/L Total Protein 4.8 L (6.3-8.2) g/dL Albumin 2.4 L (3.5-5.0) g/dL Assessment and Plan Assessment: #1 Acute colitis, cause is unclear, inflammatory versus infectious, computed tomography scan report states that ischemic colitis is less likely, will resume IV antibiotic, will consult gastroenterology, monitor white blood count. Maintain Flagyl and Levaquin. White blood cell is trending down. Diet advanced consistent carb soft diet #2 acute GI bleed likely secondary to infectious colitis. Patient transferred to intensive care unit. Hemoglobin 12.6 will continue to monitor GI services following #3 underlying history of coronary artery disease with previous history of angioplasty and stent placement last time in 2012 #4 hypokalemia corrected that [facility] will recheck labs. Potassium 2.7 replace per protocol #5 underlying history of hypertension maintained on lisinopril 5 mg daily and metoprolol 12.5 mg twice a day #6 underlying history of hyperlipidemia #7 underlying history of gastroesophageal reflux disease #8 underlying history of osteoarthritis DVT prophylaxis SCDs due to acute GI bleed. GI prophylaxis Protonix I performed an examination of the patient and discussed their management with the Nurse Practitioner. I have reviewed the Nurse Practitioner's notes and agree with the documented findings and plan of care
[2019-09-11] MEDS: LEVOFLOXACIN 500MG-D5W PMX 500 MG in DEXTROSE/WATER 1 100ML.BAG IVPB SCH (12:12)
--- NOTE | 2019-09-11 16:53 | PN ---
PROGRESS NOTE Patient is an 84-year-old pleasant white male admitted to hospital with acute onset of lower abdominal pain followed by bloody diarrhea of 2 days duration. He is doing much better today. Abdominal pain has resolved. No further episodes of bleeding. He had 2 bowel movements that were brown in color. Still remains in the intensive care unit. No fever, chills, night sweats. PHYSICAL EXAMINATION: Appears comfortable. No apparent distress. Vital signs stable. Blood pressure 131/61, pulse 92, temperature 97. HEENT examination unremarkable. Conjunctivae pink. Sclerae anicteric. Oral cavity no lesions. Neck: No JVD or lymph node enlargement. CHEST: Clear to auscultation. HEART: Regular rate and rhythm. ABDOMEN: Soft. Bowel sounds positive. No organomegaly. EXTREMITIES no pedal edema. SKIN no rashes. NEUROLOGIC: Alert and oriented x3. No focal deficits. LABORATORY DATA: WBC 13.9, hemoglobin 11.8, platelets are normal. Basic metabolic panel is within normal limits. IMPRESSION: 1. Lower abdominal pain with bloody diarrhea of 2 days duration. Most likely dealing with acute infectious colitis versus ischemic colitis. On broad-spectrum antibiotics, doing well. 2. Leukocytosis is gradually improving. RECOMMENDATIONS: 1. Advance diet as tolerated. 2. Continue with antibiotics. 3. He can be discharged home in 1-2 days with an outpatient followup in 2 weeks. 4. No plans on any endoscopy intervention at the present time. Thank you for this consultation. MMODL / IJN: [id number] /
[2019-09-11] MEDS: LATANOPROST 0.005% OPHTH DROPS 2.5 ML BTL LEFT EYE SCH (20:13)
[2019-09-11 20:19] VITALS: TEMP 98.6
[2019-09-12] MEDS: metroNIDAZOLE-NS PMX 500 MG in SALINE 1 100ML.BAG IVPB SCH ×2 (07:38→08:49)
[2019-09-12 07:48] LABS: HCT 35.6 % (39.0-53.0); HGB 11.8 gm/dL (13.0-17.5); MCH 31.8 pg (25.0-35.0); MCHC 33.1 g/dL (31.0-37.0); MCV 96.2 fL (80.0-100.0); Platelet Count 198 k/uL (150-450); RDW 13.2 % (11.5-15.5); WBC 11.7 k/uL (3.8-10.6)
[2019-09-12 08:03] LABS: ALT 16 U/L (21-72); AST 17 U/L (17-59); African American GFR (CKD) >90 (>60 ml/min/1.73 sqM); Albumin 2.6 g/dL (3.5-5.0); Alkaline Phosphatase 34 U/L (38-126); Anion Gap 8 mmol/L; Blood Urea Nitrogen 10 mg/dL (9-20); Carbon Dioxide 26 mmol/L (22-30); Chloride 103 mmol/L (98-107); Glucose 110 mg/dL (74-99); Potassium 3.3 mmol/L (3.5-5.1); Sodium 137 mmol/L (137-145); Total Bilirubin 0.9 mg/dL (0.2-1.3); Total Protein 5.1 g/dL (6.3-8.2)
--- NOTE | 2019-09-12 08:35 | P.PN ---
Subjective Progress Note Date: 09/12/19 On today's evaluation of 09/12/2019 the patient is looking well. He has no specific complaints. He had a regular diet yesterday and he had breakfast this morning. No abdominal pain. No abdominal distention. No diarrhea. No bloody bowel movements. He is still on examination of Levaquin and Flagyl. His labs from today is still pending. The white cell count had normalized from yesterday and was dropped down to 13.1. His hemoglobin from yesterday was 11.8. No fever. No chills. He has several other comorbidities including coronary artery disease and hypertension hyperlipidemia. IV fluids were cut down to 40 mL an hour. He was able to eat pancakes and eggs this morning. Objective - Vital Signs Vital signs: Vital Signs Temp 98.6 F 09/11/19 20:00 Pulse 67 09/11/19 20:00 Resp 18 09/11/19 20:00 BP 125/60 09/11/19 20:00 Pulse Ox 97 09/11/19 20:00 Intake & Output 09/11/19 09/12/19 09/12/19 18:59 06:59 18:59 Intake Total 280 290 Output Total 1002 500 Balance -722 -210 Intake: IV 280 40 Sodium Chloride 0.9% 1, 280 40 000 ml @ 40 mls/hr IV . Q24H [facility] Rx#:[id number] Oral 250 Output: Urine 1000 500 Stool 2 Other: Voiding Method Urinal # Voids 2 # Bowel Movements 1 1 - Exam In general patient is alert and oriented 3 in no apparent distress Head exam was generally normal. There was no scleral icterus or corneal arcus. Mucous membranes were moist. Neck was supple and without jugular venous distension, thyromegaly, or carotid bruits. Carotids were easily palpable bilaterally. There was no adenopathy. Chest exam reveals a few scattered rhonchi no wheezing Cardiac exam reveals regular heart sounds S1 and S2 no gallops no murmurs Abdomen is soft, with mild diffuse tenderness, no organomegaly with normal bowel sounds Extremity exam reveals mild edema no cyanosis or clubbing Neurological examination reveals no gross focal deficit Examination of the skin revealed no evidence of significant rashes, suspicious appearing nevi or other concerning lesions. - Labs CBC & Chem 7: 09/11/19 04:22 09/11/19 20:22 Labs: Abnormal Lab Results - Last 24 Hours (Table) 09/11/19 Range/Units 20:22 Potassium 3.4 L (3.5-5.1) mmol/L Microbiology - Last 24 Hours (Table) 09/08/19 22:30 Stool Culture - Preliminary Stool Assessment and Plan Plan: 1 diffuse colitis, consider infectious colitis viral versus bacterial. Stool for C. diff has been negative. The patient has not received any recent antibiotics. The patient has no clear signs of ischemic colitis. Clinically the patient is improving. No significant abdominal tenderness. No evidence of any ongoing bleeding. Hemoglobin is stable for now. The patient is covered with accommodation Levaquin and Flagyl. White cell count is improving. The patient is also improvement today's evaluation that is no significant abdominal pain or distention. The patient has been updated to a regular foods. 2 acute GI bleeding, lower GI source, related to colitis, currently inactive in stable, awaiting follow-up hemoglobin from today 3 hypertension 4 coronary artery disease 5 diabetes mellitus 6 previous history of coronary artery disease and insertion of a coronary stent 7. Glaucoma 8 hyperlipidemia 9 leukocytosis, improving, awaiting follow-up white cell count from today. Plan Doing well. We'll recommend outpatient antibiotics with Levaquin and Flagyl probably to complete a seven-day course. Advance diet to regular. Ambulate in the hallway. Possible discharge and this will be left up to the medical group.
[2019-09-12] MEDS: DORZOLAMIDE-TIMOLOL 2.23%/0.68 10ML BTL LEFT EYE SCH (08:50)
[2019-09-12] MEDS: METOPROLOL SUCCINATE (ER) 25 MG TAB.ER.24H PO SCH (08:50)
[2019-09-12] MEDS: LISINOPRIL 5 MG TAB PO SCH (08:50)
[2019-09-12] MEDS ORDERED: PANTOPRAZOLE 40 MG TABLET PO SCH (09:00)
[2019-09-12] MEDS: POTASSIUM CHLORIDE ER 20 MEQ TAB.ER PO SCH ×2 (09:52→11:17)
[2019-09-12] MEDS: LEVOFLOXACIN 500MG-D5W PMX 500 MG in DEXTROSE/WATER 1 100ML.BAG IVPB SCH (11:17)
--- NOTE | 2019-09-12 11:57 | P.DS ---
Providers Date of admission: 09/08/19 04:56 Expected date of discharge: 09/12/19 Attending physician: Erlinda Frausto Consults: 09/08/19 04:58 Consult Physician Routine Consulting Provider: Jil Holguin Consult Reason/Comments: colitis Do you want consulting provider notified?: Yes 09/09/19 07:34 Consult Physician Routine Consulting Provider: Severo Woodson Consult Reason/Comments: GIB Do you want consulting provider notified?: Already Contacted Primary care physician: Mine Granados [facility] Course: Discharge diagnosis #1 Acute colitis likely acute infectious colitis versus ischemic colitis per GI. Maintain Flagyl and Levaquin. White blood cell is trending down. Diet advanced consistent carb soft diet. White blood cell improving to 11.3. Patient has been cleared by GI services. Recommend 5 days of Levaquin and Flagyl. Outpatient follow-up with GI services for further management #2 acute GI bleed likely secondary to infectious colitis. Patient transferred to intensive care unit. Hemoglobin 12.6 will continue to monitor GI services following. Hemoglobin remained stable at 11.8. Aspirin currently on hold repeat CBC has been ordered #3 underlying history of coronary artery disease with previous history of angioplasty and stent placement last time in 2012 #4 hypokalemia corrected that [facility] will recheck labs. Potassium 2.7 replace per protocol. Will DC patient on 10 days of potassium 20 mEq repeat CMP has been ordered recommend close following with PCP #5 underlying history of hypertension. home meds resumed #6 underlying history of hyperlipidemia #7 underlying history of gastroesophageal reflux disease #8 underlying history of osteoarthritis Hospital course Toro Vallejo is an 84-year-old male who was at home when he started having lower abdominal pain and diaphoresis his called EMS and patient was taken to [facility], he was evaluated there, his laboratory data was significant for leukocytosis, severe hypokalemia, and slight elevation in amylase with normal lipase, computed tomography scan of the abdomen and pelvis revealed inflammatory changes involving the ascending and transverse colon, computed tomography scan also revealed evidence of 2 lesions in the left kidney and a 0.4 cm nonobstructing stone in the left kidney, he was started on antibiotic and was admitted under Dr. Loya service at [facility], he was evaluated by Dr. Loya and was transferred to our hospital for further evaluation by gastroenterology or surgery. Patient denies any previous history of colitis or Crohn's disease, he has known history of coronary artery disease and had previous history of stent placement he also has known history of hypertension, hyperlipidemia, diabetes mellitus, and glaucoma his past surgical history is significant for appendicectomy and left knee total arthroplasty. On review of systems patient is alert and oriented 3 he is still complaining of lower abdominal pain and complaining of blood in his stools otherwise no complaints at this time there is no fever or chills no headache or dizziness no chest pain no shortness of breath no cough no nausea or vomiting burning was urination no frequency or urgency and no hematuria On 09/09/2019 patient is alert and oriented 3. Patient transferred to the intensive care unit due to acute GI bleed. She has had 2 bowel movements in the past 12 hours. Slight blood noted in nursing staff and patient. Hemoglobin remained stable at 12.6. Patient reports significant improvement with abdominal pain and nausea. Patient remains on IV antibiotics. Blood cell is trending down to 7.6. Potassium low at 2.7 replacement protocol. GI services following GI and critical care service is following On 09/10/2019 patient is alert and oriented 3. Per nursing staff patient has had no more episodes of blood in stool. Hemoglobin remained stable at 12.3. Patient remains on IV antibiotics. At this time patient denies chest pain or shortness of breath. Patient denies nausea vomiting or diarrhea. Patient denies urinary burning or frequency. On 09/11/2019 patient's alert and oriented 3. Patient had normal BM the same without any signs of blood. Diet has been advanced to consistent carb soft diet. Patient had normal breakfast this morning he states that he tolerated well. Patient denies chest pain or shortness of breath. Patient denies nausea vomiting or diarrhea. Patient denies any urinary burning or frequency. White blood cell improving to 13.1. On 09/12/2019 patient's alert and oriented 3. Patient feels much improved. Has been tolerating diet having bowel movement. Denies any blood in stool. Hemoglobin remained stable. White blood cell continues to trend down. Patient has been cleared for discharge from GI standpoint recommended 5 days of Levaquin and Flagyl and outpatient follow-up. We'll also DC patient on 10 days of potassium 20 mEq due to continuous hypokalemia. Recommend close follow up with PCP. Home meds resumed. Aspirin currently on hold due to recent GI bleed. At this time patient is eager to go home. Patient denies chest pain or shortness breath. Patient denies nausea vomiting or diarrhea. Patient denies any urinary burning or frequency. I performed an examination of the patient and discussed their management with the Nurse Practitioner. I have reviewed the Nurse Practitioner's notes and agree with the documented findings and plan of care Patient Condition at Discharge: Stable Plan - Discharge Summary Discharge Rx Participant: Yes New Discharge Prescriptions: New Potassium Chloride [K-Tab ER] 20 meq PO DAILY 10 Days #10 tablet.er Acetaminophen Tab [Tylenol] 650 mg PO Q6HR PRN tab PRN Reason: Mild Pain Or Fever > 100.5 metroNIDAZOLE [Flagyl] 500 mg PO Q8HR 5 Days #15 tab Levofloxacin 500 mg PO DAILY 5 Days #5 tablet Continue Latanoprost Ophth [Xalatan 0.005%] 1 drops LEFT EYE HS Omeprazole [PriLOSEC] 20 mg PO AC-BID Glucosamine Sulfate 500 mg PO DAILY Atorvastatin [Lipitor] 80 mg PO HS amLODIPine [Norvasc] 10 mg PO DAILY Triamterene-Hctz 37.5-25Mg [Dyazide 37.5-25 Capsule] 1 cap PO DAILY Vit A/Vit C/Vit E/Zinc/Copper [ICAPS SOFTGEL] 1 cap PO DAILY L.acidoph,Paracasei, B.lactis [Probiotic] 1 cap PO DAILY Fluticasone Nasal [place] [Flonase Nasal [place]] 2 spray EA NOSTRIL HS Dorzolamide/Timolol/Pf [Dorzolamide 2%-Timolol 0.5%] 1 drop LEFT EYE BID Discontinued Aspirin 325 mg PO DAILY Meloxicam [Mobic] 15 mg PO HS Discharge Medication List Atorvastatin [Lipitor] 80 mg PO HS 10/20/14 [History] Glucosamine Sulfate 500 mg PO DAILY 10/20/14 [History] Latanoprost Ophth [Xalatan 0.005%] 1 drops LEFT EYE HS 10/20/14 [History] Omeprazole [PriLOSEC] 20 mg PO AC-BID 10/20/14 [History] Dorzolamide/Timolol/Pf [Dorzolamide 2%-Timolol 0.5%] 1 drop LEFT EYE BID 09/08/19 [History] Fluticasone Nasal [place] [Flonase Nasal [place]] 2 spray EA NOSTRIL HS 09/08/19 [History] L.acidoph,Paracasei, B.lactis [Probiotic] 1 cap PO DAILY 09/08/19 [History] Triamterene-Hctz 37.5-25Mg [Dyazide 37.5-25 Capsule] 1 cap PO DAILY 09/08/19 [History] Vit A/Vit C/Vit E/Zinc/Copper [ICAPS SOFTGEL] 1 cap PO DAILY 09/08/19 [History] amLODIPine [Norvasc] 10 mg PO DAILY 09/08/19 [History] Acetaminophen Tab [Tylenol] 650 mg PO Q6HR PRN tab 09/12/19 [Rx] Levofloxacin 500 mg PO DAILY 5 Days #5 tablet 09/12/19 [Rx] Potassium Chloride [K-Tab ER] 20 meq PO DAILY 10 Days #10 tablet.er 09/12/19 [Rx] metroNIDAZOLE [Flagyl] 500 mg PO Q8HR 5 Days #15 tab 09/12/19 [Rx] Follow up Appointment(s)/Referral(s): Mine Granados MD [Primary Care Provider] - 1-2 days Jil Holguin MD [STAFF PHYSICIAN] - 2 Weeks Ambulatory/Diagnostic Orders: Complete Blood Count w/diff [LAB.AMB] Time Frame: 2 Days, Location: None Selected Comprehensive Metabolic Panel [LAB.AMB] Time Frame: 3 Days, Location: None Selected Activity/Diet/Wound Care/Special Instructions: Diet soft diet Activity as tolerated Discharge Disposition: HOME SELF-CARE
[2019-09-12 13:44] VITALS: BP 144/80; PULSE 75; RESP 16
== END 2019-09-12 15:35 | disposition home or self-care (01) | DRG 391 ==
LOC: EC 04:41 → 4SSUR 04:56 → 2SICU 09-09 01:01
PROVIDERS: ADMIT Internal Medicine; ATTEND Internal Medicine
DX: A09 Infectious gastroenteritis and colitis, unspecified (principal); K55.039 Acute (reversible) ischemia of large intestine, extent unspecified; D62 Acute posthemorrhagic anemia; E11.9 Type 2 diabetes mellitus without complications; I10 Essential (primary) hypertension; E87.6 Hypokalemia; I25.10 Atherosclerotic heart disease of native coronary artery without angina pectoris; Z79.82 Long term (current) use of aspirin; Z79.899 Other long term (current) drug therapy; Z87.891 Personal history of nicotine dependence; Z95.5 Presence of coronary angioplasty implant and graft; Z96.652 Presence of left artificial knee joint; K21.9 Gastro-esophageal reflux disease without esophagitis; H40.9 Unspecified glaucoma; E78.5 Hyperlipidemia, unspecified; M19.90 Unspecified osteoarthritis, unspecified site; R61 Generalized hyperhidrosis
CPT/HCPCS: 71045; 80048; 80053; 83036; 84132; 85025; 85027; 87045; 87046; 87324; 93005; 99284

== ENCOUNTER 2021-10-28 21:57 | Emergency (ER) | payer MEDICARE, BC ==
[2021-10-28 22:03] VITALS: TEMP 98.8
[2021-10-28 23:37] LABS: Basophils % (A) 0 %; Eosinophils % (A) 0 %; HCT 35.8 % (39.0-53.0); HGB 12.4 gm/dL (13.0-17.5); Lymphocytes # (A) 1.6 k/uL (1.0-4.8); Lymphocytes % (A) 16 %; MCH 32.6 pg (25.0-35.0); MCHC 34.5 g/dL (31.0-37.0); MCV 94.4 fL (80.0-100.0); Mean Platelet Volume 7.9; Monocytes # (A) 0.4 k/uL (0-1.0); Monocytes % (A) 4 %; Neutrophils # (A) 7.6 k/uL (1.3-7.7); Neutrophils % (A) 79 %; Platelet Count 162 k/uL (150-450); RDW 12.9 % (11.5-15.5); WBC 9.7 k/uL (3.8-10.6)
--- NOTE | 2021-10-28 23:42 | XR ---
EXAMINATION TYPE: XR chest 2V DATE OF EXAM: 10/28/2021 COMPARISON: 09/11/2019 HISTORY: Short of breath. Syncope TECHNIQUE: FINDINGS: There is no heart failure nor confluent pneumonic infiltrate. Costophrenic angles are fairl y clear. There are no hilar masses. There are chest leads. There is small linear density left lung ba se. IMPRESSION: Subsegmental atelectasis left lung base is improved compared to last exam. Normal heart.
[2021-10-28 23:46] LABS: Albumin 3.6 g/dL (3.5-5.0); Calcium 8.4 mg/dL (8.4-10.2); Potassium 3.4 mmol/L (3.5-5.1); Total Bilirubin 1.7 mg/dL (0.2-1.3); Total Protein 6.5 g/dL (6.3-8.2)
[2021-10-29 00:09] LABS: INR 1.1 (<1.2)
[2021-10-29 00:10] LABS: Partial Thromboplastin Time 23.8 sec (22.0-30.0); Prothrombin Time 11.8 sec (9.0-12.0)
[2021-10-29 00:30] VITALS: RESP 16
--- NOTE | 2021-10-29 00:48 | ED ---
Syncope HPI - General Chief Complaint: Syncope Stated Complaint: Syncope Time Seen by Provider: 10/28/21 23:17 Source: patient, EMS Mode of arrival: EMS Limitations: no limitations - History of Present Illness Initial Comments: This patient is an 86-year-old man who presents to be evaluated for her syncopal episode. The patient relates that he had not been feeling well going on for the past 2 days. He had had his second shingles shot yesterday and then afterwards was not feeling well. He was feeling nauseated not taking much to eat or drink, only a little bit of soup over the past few days. He states that he had slept most of the day. This evening he had some nausea and then was feeling sweaty and passed out. Patient states that his head observed. There was no seizure-type activity. He woke up without confusion. No incontinence. He states that he feels back at baseline now. MD Complaint: loss of consciousness -: hour(s) Prodromal Symptoms: lightheaded, diaphoresis -: second(s) Witnessed: yes - by bystander Injuries Sustained Associated with Event: None Current Symptoms: back to baseline Context: at rest, recent illness Treatments Prior to Arrival: none - Related Data Home Medications Medication Instructions Recorded Confirmed Atorvastatin [Lipitor] 80 mg PO HS 10/20/14 09/08/19 Glucosamine Sulfate 500 mg PO DAILY 10/20/14 09/08/19 Latanoprost Ophth [Xalatan 0.005%] 1 drops LEFT EYE HS 10/20/14 09/08/19 Omeprazole [PriLOSEC] 20 mg PO AC-BID 10/20/14 09/08/19 Dorzolamide/Timolol/Pf 1 drop LEFT EYE BID 09/08/19 09/08/19 [Dorzolamide 2%-Timolol 0.5%] Fluticasone Nasal [place] [Flonase 2 spray EA NOSTRIL HS 09/08/19 09/08/19 Nasal [place]] L.acidoph,Paracasei, B.lactis 1 cap PO DAILY 09/08/19 09/08/19 [Probiotic] Triamterene-Hctz 37.5-25Mg 1 cap PO DAILY 09/08/19 09/08/19 [Dyazide 37.5-25 Capsule] Vit A/Vit C/Vit E/Zinc/Copper 1 cap PO DAILY 09/08/19 09/08/19 [ICAPS SOFTGEL] amLODIPine [Norvasc] 10 mg PO DAILY 09/08/19 09/08/19 Previous Rx's Medication Instructions Recorded Potassium Chloride [K-Tab ER] 20 meq PO DAILY 10 Days #10 09/12/19 tablet.er levoFLOXacin 500 mg PO DAILY 5 Days #5 tablet 09/12/19 metroNIDAZOLE [Flagyl] 500 mg PO Q8HR 5 Days #15 tab 09/12/19 Allergies Allergy/AdvReac Type Severity Reaction Status Date / Time No Known Allergies Allergy Verified 10/28/21 22:03 Review of Systems ROS Statement: Those systems with pertinent positive or pertinent negative responses have been documented in the HPI. ROS Other: All systems not noted in ROS Statement are negative. Constitutional: Denies: fever, chills Eyes: Denies: vision change Respiratory: Denies: cough, dyspnea Cardiovascular: Reports: syncope. Denies: chest pain, palpitations, orthopnea, edema Gastrointestinal: Reports: nausea. Denies: abdominal pain, vomiting, diarrhea, constipation Genitourinary: Denies: dysuria, hematuria Musculoskeletal: Denies: back pain Skin: Denies: rash Neurological: Denies: headache, weakness, numbness Past Medical History Past Medical History: Coronary Artery Disease (CAD), Diabetes Mellitus, GERD/Reflux, Hyperlipidemia, Hypertension Additional Past Medical History / Comment(s): glaucoma History of Any Multi-Drug Resistant Organisms: None Reported Past Surgical History: Appendectomy, Heart Catheterization With Stent Additional Past Surgical History / Comment(s): Left knee 10-16-[address] Seo at [facility]. Past Anesthesia/Blood Transfusion Reactions: No Reported Reaction Date of Last Stent Placement:: Past Psychological History: No Psychological Hx Reported Smoking Status: Former smoker Past Alcohol Use History: Occasional Past Drug Use History: None Reported General Exam Limitations: no limitations General appearance: alert, in no apparent distress Head exam: Present: atraumatic, normocephalic Eye exam: Present: normal appearance. Absent: scleral icterus, conjunctival injection Neck exam: Present: normal inspection Respiratory exam: Present: normal lung sounds bilaterally. Absent: respiratory distress, wheezes, rales, rhonchi, stridor Cardiovascular Exam: Present: regular rate, normal rhythm, normal heart sounds. Absent: systolic murmur, diastolic murmur, rubs, gallop GI/Abdominal exam: Present: soft. Absent: distended, tenderness, guarding, rebound, rigid, mass Extremities exam: Present: normal inspection, normal capillary refill. Absent: pedal edema, calf tenderness Back exam: Present: normal inspection Neurological exam: Present: alert, oriented X3, CN II-XII intact. Absent: motor sensory deficit Skin exam: Present: warm, dry, intact, normal color. Absent: rash Course Vital Signs 10/28/21 10/29/21 10/29/21 21:58 00:03 02:27 Temperature 98.8 F Pulse Rate 63 55 L 56 L Respiratory 18 16 16 Rate Blood Pressure 110/57 110/57 93/50 O2 Sat by Pulse 96 98 97 Oximetry EKG Findings - EKG Results: EKG: interpreted by DEVIKA, sinus rhythm (Rate 60 bpm), normal ST/T - [place]ocks, [place], Hypertrophy, ST Abn: AV and intraventricular conduction: intraventricular conduction delay QRS axis and voltage: left axis deviation (-30 to -90) Medical Decision Making - Lab Data Result diagrams: 10/28/21 23:25 10/28/21 23:25 Lab Results 10/28/21 10/28/21 10/28/21 Range/Units 23:25 23:25 23:25 WBC 9.7 (3.8-10.6) k/uL RBC 3.80 L (4.30-5.90) m/uL Hgb 12.4 L (13.0-17.5) gm/dL Hct 35.8 L (39.0-53.0) % MCV 94.4 (80.0-100.0) fL MCH 32.6 (25.0-35.0) pg MCHC 34.5 (31.0-37.0) g/dL RDW 12.9 (11.5-15.5) % Plt Count 162 (150-450) k/uL MPV 7.9 Neutrophils % 79 % Lymphocytes % 16 % Monocytes % 4 % Eosinophils % 0 % Basophils % 0 % Neutrophils # 7.6 (1.3-7.7) k/uL Lymphocytes # 1.6 (1.0-4.8) k/uL Monocytes # 0.4 (0-1.0) k/uL Eosinophils # 0.0 (0-0.7) k/uL Basophils # 0.0 (0-0.2) k/uL PT 11.8 (9.0-12.0) sec INR 1.1 (<1.2) APTT 23.8 (22.0-30.0) sec D-Dimer 0.40 (<0.60) mg/L FEU Sodium 132 L (137-145) mmol/L Potassium 3.4 L (3.5-5.1) mmol/L Chloride 97 L (98-107) mmol/L Carbon Dioxide 24 (22-30) mmol/L Anion Gap 11 mmol/L BUN 26 H (9-20) mg/dL Creatinine 1.03 (0.66-1.25) mg/dL Est GFR (CKD-EPI)AfAm 76 (>60 ml/min/1.73 sqM) Est GFR (CKD-EPI)NonAf 65 (>60 ml/min/1.73 sqM) Glucose 173 H (74-99) mg/dL Calcium 8.4 (8.4-10.2) mg/dL Total Bilirubin 1.7 H (0.2-1.3) mg/dL AST 23 (17-59) U/L ALT 24 (4-49) U/L Alkaline Phosphatase 49 (38-126) U/L Troponin I (0.000-0.034) ng/mL Total Protein 6.5 (6.3-8.2) g/dL Albumin 3.6 (3.5-5.0) g/dL Urine Color Urine Appearance (Clear) Urine pH (5.0-8.0) Ur Specific [place] (1.001-1.035) Urine Protein (Negative) Urine Glucose (UA) (Negative) Urine Ketones (Negative) Urine Blood (Negative) Urine Nitrite (Negative) Urine Bilirubin (Negative) Urine Urobilinogen (<2.0) mg/dL Ur Leukocyte Esterase (Negative) 10/28/21 10/29/21 10/29/21 Range/Units 23:25 00:49 03:49 WBC (3.8-10.6) k/uL RBC (4.30-5.90) m/uL Hgb (13.0-17.5) gm/dL Hct (39.0-53.0) % MCV (80.0-100.0) fL MCH (25.0-35.0) pg MCHC (31.0-37.0) g/dL RDW (11.5-15.5) % Plt Count (150-450) k/uL MPV Neutrophils % % Lymphocytes % % Monocytes % % Eosinophils % % Basophils % % Neutrophils # (1.3-7.7) k/uL Lymphocytes # (1.0-4.8) k/uL Monocytes # (0-1.0) k/uL Eosinophils # (0-0.7) k/uL Basophils # (0-0.2) k/uL PT (9.0-12.0) sec INR (<1.2) APTT (22.0-30.0) sec D-Dimer (<0.60) mg/L FEU Sodium (137-145) mmol/L Potassium (3.5-5.1) mmol/L Chloride (98-107) mmol/L Carbon Dioxide (22-30) mmol/L Anion Gap mmol/L BUN (9-20) mg/dL Creatinine (0.66-1.25) mg/dL Est GFR (CKD-EPI)AfAm (>60 ml/min/1.73 sqM) Est GFR (CKD-EPI)NonAf (>60 ml/min/1.73 sqM) Glucose (74-99) mg/dL Calcium (8.4-10.2) mg/dL Total Bilirubin (0.2-1.3) mg/dL AST (17-59) U/L ALT (4-49) U/L Alkaline Phosphatase (38-126) U/L Troponin I <0.012 <0.012 (0.000-0.034) ng/mL Total Protein (6.3-8.2) g/dL Albumin (3.5-5.0) g/dL Urine Color Yellow Urine Appearance Clear (Clear) Urine pH 5.5 (5.0-8.0) Ur Specific [place] 1.021 (1.001-1.035) Urine Protein Trace H (Negative) Urine Glucose (UA) Negative (Negative) Urine Ketones Negative (Negative) Urine Blood Negative (Negative) Urine Nitrite Negative (Negative) Urine Bilirubin Negative (Negative) Urine Urobilinogen <2.0 (<2.0) mg/dL Ur Leukocyte Esterase Negative (Negative) Disposition Clinical Impression: Syncope Disposition: HOME SELF-CARE Condition: Good Instructions (If sedation given, give patient instructions): Syncope (ED) Is patient prescribed a controlled substance at d/c from ED?: No Referrals: Mine Granados MD [Primary Care Provider] - 1-2 days
[2021-10-29 00:59] LABS: Appearance,Urine Clear (Clear); Bilirubin,Urine Negative (Negative); Blood,Urine Negative (Negative); Color,Urine Yellow; Glucose,Urine (UA) Negative (Negative); Ketones,Urine Negative (Negative); Leukocyte Esterase,Urine Negative (Negative); Nitrite,Urine Negative (Negative); PH, Urine 5.5 (5.0-8.0); Protein,Urine Trace (Negative); Specific Gravity,Urine 1.021 (1.001-1.035); Urobilinogen,Urine <2.0 mg/dL (<2.0)
[2021-10-29] MEDS ORDERED: SODIUM CHLORIDE 0.9% 1,000 ML IV ONE (01:54)
[2021-10-29 09:10] VITALS: BP 130/60; PULSE 65
== END 2021-10-29 09:30 | disposition home or self-care (01) ==
LOC: EC 21:57
DX: R55 Syncope and collapse (principal); E11.9 Type 2 diabetes mellitus without complications; I10 Essential (primary) hypertension; E78.5 Hyperlipidemia, unspecified; I25.10 Atherosclerotic heart disease of native coronary artery without angina pectoris; K21.9 Gastro-esophageal reflux disease without esophagitis; Z87.891 Personal history of nicotine dependence; Z79.899 Other long term (current) drug therapy
CPT/HCPCS: 36415; 71046; 80053; 81003; 84484; 85025; 85379; 85610; 85730; 93005; 96360; 96361; 99284